=== PATIENT | male | born 1995 | race Caucasian/White ===

== ENCOUNTER 2017-10-07 17:05 | Emergency (ER) | payer BC ==
--- NOTE | 2017-10-07 17:34 | EDPHY ---
H & P Stated Complaint: PT NOTICED ELEVATED BP UPON RETURN FROM [facility] Time Seen by Provider: 10/07/17 17:34 HPI/ROS: CHIEF COMPLAINT: Hypertension HISTORY OF PRESENT ILLNESS: The patient is sent to the ED for evaluation of hypertension. The patient reportedly was noted to have unequal blood pressure in his right and left arm at his primary care provider's office which prompted his visit to the emergency department. The patient has no complaints of chest pain currently. He has been scheduled to see Cardiology in the coming weeks. The patient takes no regular medications. The patient denies any chest pain or shortness of breath. The patient denies asymmetric calf pain or swelling. REVIEW OF SYSTEMS: A comprehensive 10 point review of systems is otherwise negative aside from elements mentioned in the history of present illness. Source: Patient - Personal History Current Tetanus/Diphtheria Vaccine: Unsure - Medical/Surgical History Hx Asthma: No Hx Chronic Respiratory Disease: No Hx Diabetes: No Hx Cardiac Disease: No Hx Renal Disease: No Hx Cirrhosis: No Hx Alcoholism: No Hx HIV/AIDS: No Hx Splenectomy or Spleen Trauma: No Other PMH: t&a - Social History Smoking Status: Never smoked - Physical Exam Exam: General Appearance: Alert, no distress Eyes: Pupils equal and round no pallor or injection ENT, Mouth: Mucous membranes moist Respiratory: There are no retractions, lungs are clear to auscultation Cardiovascular: Regular rate and rhythm Gastrointestinal: Abdomen is soft and nontender, no masses, bowel sounds normal Neurological: A&O, normal motor function, normal sensory exam, normal cranial nerves Skin: Warm and dry, no rashes Musculoskeletal: Neck is supple nontender Extremities: symmetrical, full range of motion Constitutional: Initial Vital Signs Temperature (C) 36.7 C 10/07/17 17:10 Heart Rate 73 10/07/17 17:10 Respiratory Rate 18 10/07/17 17:10 Blood Pressure 158/100 H 10/07/17 17:10 O2 Sat (%) 96 10/07/17 17:10 O2 Delivery Mode Room Air Allergies/Adverse Reactions: No Known Allergies Allergy (Unverified 10/07/17 17:09) Home Medications: Medication Instructions Recorded Albuterol Sulfate 10/07/17 Medical Decision Making - Diagnostics Imaging Results: Imaging Impressions Chest X-Ray 10/07/17 18:06 Impression: Query mild airways disease. ED Course/Re-evaluation: I reviewed the patient's outpatient blood work. The patient has no evidence of any blood pressure asymmetry noted in the right or left arms in the emergency department. His initial blood pressure was in the 160/100 range however on recheck it is currently 146/102. I reviewed the patient's outpatient EKG which demonstrates no evidence of ischemia or arrhythmia. Based upon the patient's blood pressure measurements which are symmetric bilaterally and his physical exam I do not feel that coarctation needs to be evaluated. Patient's chest x-ray demonstrates no cardiomegaly or other significant intrathoracic findings. At this point time I do feel the patient can be discharged home. Patient's blood pressure is currently 149/100. He is scheduled to follow up with Cardiology. Differential Diagnosis: Differential diagnosis considered includes hypertensive urgency, hypertensive urgency, congenital heart disease Departure - Departure Disposition: Home, Routine, Self-Care Clinical Impression: Hypertension Condition: Good Instructions: Hypertension (ED) Additional Instructions: 1. Please follow up as scheduled with Cardiology. 2. Return to the ED for any chest pain, severe headache, numbness, weakness or shortness of breath. Referrals: Alina Denney MD [Medical Doctor] - As per Instructions
[2017-10-07 19:02] VITALS: BP 141/104; PULSE 90; RESP 16; TEMP 99; O2SAT 97
== END 2017-10-07 19:01 | disposition home or self-care (01) ==
DX: I10 Essential (primary) hypertension (principal)